=== PATIENT | female | born 2000 | race Caucasian/White ===

== ENCOUNTER 2022-09-30 14:59 | Observation (INO) | payer OTHER, SELFPAY ==
[2022-09-30] VITALS (7 sets, daily range): BP systolic 108–118; BP diastolic 59–83; PULSE 71–121; RESP 14–30; TEMP 35.5–36.7; O2SAT 90–99; BMI 30.7; BMI 29.5
--- NOTE | 2022-09-30 15:18 | CT_ITS ---
STUDY: CT ABDOMEN AND PELVIS WITHOUT CONTRAST REASON FOR EXAM: Female, 21 years old. llq abdominal pain RADIATION DOSAGE (If Supplied By Facility): CTDIvol = ( 8.94 ) mGy, DLP = ( 469.14 ) mGycm TECHNIQUE: Transaxial images were obtained from the dome of the diaphragm to the symphysis pubis without oral contrast, and without intravenous contrast. Sagittal and coronal images were reconstructed. Individualized dose optimization techniques were used for this CT. COMPARISON: None. FINDINGS: The visualized lung bases are unremarkable. The visualized portions of the heart are within normal limits. Massively enlarged left kidney, measuring as much as 23 cm top to bottom. Most of this is from numerous fluid density structures consistent with severe long-term hydronephrosis. However, multicystic dysplastic kidney is not excluded although these are most often discovered at a far earlier age. Further evaluation is necessary with contrast CT or contrast MRI. No stones. Normal appearance of right kidney. There is decreased attenuation of the liver consistent with steatosis. There is hepatomegaly. Normal gallbladder and extrahepatic biliary system. Normal spleen. Normal pancreas. Normal bilateral adrenal glands. Evaluation of the GI tract is limited by absence of oral contrast. Cannot exclude stomach wall thickening. No dilated loops of bowel or evidence for obstruction. Cannot exclude segmental thickening of the narvaez of the small or large bowel. Cannot exclude enteritis or colitis. Moderate diffuse fecal retention. Appendix within normal limits. Normal abdominal aorta. Normal inferior vena cava. Normal retroperitoneum. Normal urinary bladder. Normal visualized uterus. Normal abdominal wall. Normal osseous structures. CT/Abdomen/Pelvis without Cont IMPRESSION: Massively enlarged left kidney, measuring as much as 23 cm top to bottom. Most of this is from numerous fluid density structures consistent with severe long-term hydronephrosis. However, multicystic dysplastic kidney is not excluded. Further evaluation is necessary with contrast CT or contrast MRI. Electronically Signed: Sim Montoya MD at 19:14 EDT ,
--- NOTE | 2022-09-30 15:20 | ED.VIS.GI ---
HPI HPI - GI History of Present Illness Chief Complaint: Abd Pain Narrative Narrative: 21-year-old female presenting with allergic reaction. Previously she was diagnosed with UTI/kidney infection in [place] where she is from. She states that she went back on the fifth and was put on Bactrim after her lab work was normal. She did not have any imaging. Over the course of the last 5 days she developed a rash which is hive-like and itchy. She states that it spread all over her whole body. She is concerned she is having an allergic reaction to the Bactrim so she stopped taking this 2 days ago. She is also been on [place] which she has not had before so she does not know she is allergic to this. She does not have any shortness of breath but she is having abdominal pain and noticed that she has a abdominal mass in the left lower quadrant. Has not had any fevers that she knows of. He has not had diarrhea but is having constipation and she has been taking stool softeners without significant relief. Patient states he is not having any more urinary symptoms however. [facility] Medical History Anxiety Home Medications escitalopram oxalate 10 mg tablet (Lexapro) 10 mg PO DAILY 09/30/22 [History Last Taken Unknown] Allergy/AdvReac Type Severity Reaction Status Date / Time TREE NUTS Allergy Severe Anaphylaxis Uncoded 09/30/22 15:01 CITRIC ACID AdvReac Mild BLISTERS Uncoded 09/30/22 15:01 RED PEPPER AdvReac Mild BLISTERS Uncoded 09/30/22 15:01 Social History Smoking Status: Current every day smoker tobacco type: e-cigarettes ROS ROS ED Constitutional Constitutional ED: Denies chills or fever(s) ENT ENT ED: Denies rhinorrhea or sore throat Cardiovascular Cardiovascular: Denies chest pain or palpitations Respiratory/Chest Respiratory/Chest: Denies cough or dyspnea Gastrointestinal Gastrointestinal: Reports abdominal pain and nausea Genitourinary Genitourinary ED: Denies hematuria or urinary frequency Musculoskeletal Musculoskeletal: Reports back pain Integumentary Reports rash; Denies abscess or Abrasions Neurologic Neurologic: Denies headache(s) EXAM Physical Exam Const Vital Signs: 09/30/22 15:02 09/30/22 17:10 09/30/22 18:00 Temperature 96 F L Temperature Source Temporal Pulse Rate 121 H 100 98 Respiratory Rate 16 24 H 29 H Blood Pressure 118/83 H Blood Pressure Mean 94 Pulse Ox 90 Oxygen Delivery Method Room Air 09/30/22 19:00 Temperature Temperature Source Pulse Rate 91 Respiratory Rate 30 H Blood Pressure Blood Pressure Mean Pulse Ox Oxygen Delivery Method Positive well nourished General Appearance ED: NAD; Negative for pallor HEENT Reports moist mucous membranes normocephalic Eyes General Eye ED: Negative for pale conjunctiva Resp normal respiratory effort and clear to auscultation bilaterally Auscultation: Negative for rales, rhonchi or wheezes Cardio regular rhythm Rate: tachycardic GI GI Narrative: Abdominal distention with palpable mass in the left upper and lower quadrant Inspection: other Palpation: tender LLQ and LUQ Neuro CN's II-XII intact bilaterally Sensorium / Orientation: alert Psych mental status grossly normal Skin no wounds General Skin Exam: Negative for jaundice or pallor MDM MDM MDM Narrative Medical decision making narrative: Patient presenting with allergic reaction to what she presumed was Bactrim and she was treated as such with epinephrine, Solu-Medrol, Pepcid, Benadryl and IV fluids. She does not have any respiratory distress and her lungs are clear. No rashes fairly diffuse but did improve some after treatment. Patient states that she is also having abdominal pain and she has palpable mass in the left side of her abdomen. Differential includes pyelonephritis, bowel obstruction, UTI, diverticulitis, colitis, allergic reaction, hernia. She states the pain here is acute and she never had this before. She is given morphine and Zofran initially. This did not touch her pain and she was given Dilaudid. CBC was obtained to assess white blood cell count, hemoglobin, platelets. CMP to assess liver function, renal function, electrolytes. Creatinine is slightly elevated at 1.22 with no comparison. Potassium is 3.1. Lactic acid is reassuring at 0.9. Lipase is negative. Urinalysis concerning for infection especially given the flank pain and abdominal pain. She was given Rocephin and urine culture was sent. CT abdomen pelvis was attempted with IV contrast however she had 2 small gauge of IV to get IV contrast that she was refusing any more sticks because these were attempted multiple times. I got a CT of the abdomen pelvis without contrast which showed a large mass from the left kidney which is 23 cm from top to bottom. I talked to Dr. Melvin regarding this and she seemed to believe that this was something, however I did drug and alcohol counselor her she had acute pain and she has a concerning urinalysis. She stated that she would admit her and possibly put a stent in her. I have counseled the patient on all findings and the plan and she was amenable to this. She is admitted in stable condition. Impression: 1. Anaphylaxis 2. Left renal mass 3. Pyelonephritis 4. Hydronephrosis Lab Data Attestation: I reviewed the patient's lab results. Labs: Laboratory Results - last 24 hr 09/30/22 09/30/22 09/30/22 15:33 15:58 19:53 WBC 18.9 H RBC 3.82 L Hgb 12.2 Hct 34.7 L MCV 90.8 MCH 31.9 MCHC 35.2 RDW Std Deviation 41.5 RDW Coeff of Watson 12.5 Plt Count 293 MPV 9.6 Immature Gran % (Auto) 2.900 H Neut % (Auto) 70.5 H Lymph % (Auto) 9.3 L [place] % (Auto) 8.9 Eos % (Auto) 7.5 H Baso % (Auto) 0.9 Absolute Neuts (auto) 13.4 H Absolute Lymphs (auto) 1.76 Nucleated RBC % 0 Differential Comment SEE COMMENT Diff Path Review May foll Platelet Estimate ADEQUATE RBC Morphology N CHROM Anisocytosis RARE Macrocytosis RARE Sodium 139 Potassium 3.1 L Chloride 107 Carbon Dioxide 18.0 L Anion Gap 14 BUN 14 Creatinine 1.22 H Estim Creat Clear Calc 55.51 Est GFR (MDRD) Af Amer 72 Est GFR (MDRD) Non-Af 59 L BUN/Creatinine Ratio 11.5 Glucose 86 Lactic Acid 0.9 Calcium 9.1 Total Bilirubin 0.90 AST 19 ALT 27 Alkaline Phosphatase 172 H Total Protein 6.9 Albumin 2.4 L Globulin 4.5 H Albumin/Globulin Ratio 0.5 L Lipase 31 Serum , Qual Cancelled Urine Color Pooja Urine Clarity Cloudy Urine pH 6.0 Ur Specific [place] 1.015 Urine Protein 100 H Urine Glucose (UA) Normal Urine Ketones Negative Urine Occult Blood 250 H Urine Nitrite Negative Urine Bilirubin 1 H Urine Urobilinogen 4 H Ur Leukocyte Esterase 500 H Urine RBC 5-10 SEEN Urine WBC 50-100 SEEN Ur Squamous Epith Cells 0-5 SEEN Urine Bacteria 0 SEEN Urine Mucus 0 SEEN Urine Test Negative Radiography Diagnostic Testing: Clinical Impression(s) from Imaging Studies Abdomen/Pelvis CT 09/30/22 15:18 IMPRESSION: Massively enlarged left kidney, measuring as much as 23 cm top to bottom. Most of this is from numerous fluid density structures consistent with severe long-term hydronephrosis. However, multicystic dysplastic kidney is not excluded. Further evaluation is necessary with contrast CT or contrast MRI. Electronically Signed: Sim Montoya MD at 19:14 EDT , Discharge Plan Disposition Disposition: Acute Care Hospital [facility] Discharge Date/Time: 09/30/22 21:01
[2022-09-30] MEDS: Epi Pen (EQUIV) 0.3 MG Syringe IM (15:38)
[2022-09-30] MEDS: Ondansetron 4 MG/2 ML Vial IV (15:40)
[2022-09-30] MEDS: DiphenhydrAMINE 50 MG/ML Syringe IV (15:40)
[2022-09-30] MEDS: Morphine 4 MG/ML Syringe IV (15:40)
[2022-09-30] MEDS: 0.9% Normal Saline 1,000 ML 999 ML IV (15:43)
[2022-09-30 15:49] LABS: Bacteria 0 SEEN /hpf (None Seen); Mucous, Urine 0 SEEN /hpf (<or=2+)
[2022-09-30 16:06] LABS: Color, Urine Amber (Yellow); Glucose, Dipstick Normal (Normal); Ketone-Dipstick Negative (Negative); Leukocyte Esterase-Dipstick 500 /ul (Negative); Nitrite-Dipstick Negative (Negative); Occult Blood-Urine 250 /ul (Negative); Protein-Dipstick 100 mg/dl (Negative); Specific Gravity, Urine 1.015 (1.002-1.030); Urine Clarity Cloudy (Clear); Urine Urobilinogen 4 mg/dl (Normal)
[2022-09-30 16:08] LABS: Absolute Lymphocyte Count 1.76 X10^3/uL (0.83-4.51); Absolute Neutrophil Count 13.4 X10^3/uL (2.0-7.7); Basophil# 0.17 X10^3/uL; Basophil% 0.9 % (0-1); Eosinophil# 1.42 X10^3/uL; Eosinophils% 7.5 % (0-5); Hematocrit 34.7 % (37-47); Hemoglobin 12.2 g/dL (12.0-15.0); Lymphocyte # 1.76 X10^3/ul (0.83-4.51); Lymphocyte % 9.3 % (19-41); Mean Corp Hgb Conc 35.2 g/dL (32-36); Mean Corpuscular Hgb 31.9 pg (27.0-32.0); Mean Corpuscular Volume 90.8 fL (81-99); Mean Platelet Vol. 9.6 fl (6.2-12.0); Monocyte# 1.68 X10^3/uL; Monocyte% 8.9 % (0-10); NRBC Flagged by Analyzer 0 % (0-5); Neutrophil # 13.36 X10^3/uL (2.7-7.7); Neutrophil % 70.5 % (47-70); POSITIVE DIFFERENTIAL YES; POSITIVE MORPHOLOGY YES; Platelet Count 293 K/mm3 (150-450); RBC Distribution Width CV 12.5 % (11.6-14.6); RBC Distribution Width SD 41.5 fl (35.1-43.9); Red Blood Count 3.82 M/mm3 (4.2-5.4); White Blood Count 18.9 K/mm3 (4.4-11.0)
[2022-09-30] MEDS: MethylPREDNISolone 125 MG/2 ML Vial IV (16:10)
[2022-09-30] MEDS: Famotidine 200 MG/20 ML MDV 20 MG in 0.9% Normal Saline (Pres. free 8 ML 300 MG IV (16:11)
[2022-09-30 16:18] LABS: Differential Indicated SCAN CRITERIA MET
[2022-09-30] MEDS: HYDROmorphone 0.5 MG/0.5 ML SYRINGE IV ×2 (16:22→19:43)
[2022-09-30 16:23] LABS: Urine Bilirubin Dipstick 1 mg/dL (Negative)
[2022-09-30 16:24] LABS: Red Blood Cells-Urine 5-10 SEEN /hpf (0-5); Squamous Epithelial Cells - UA 0-5 SEEN /hpf (5-10); White Blood Cells 50-100 SEEN /hpf (0-5)
[2022-09-30 16:43] LABS: Anisocytosis RARE; Macrocytosis RARE; Platelet Estimate ADEQUATE (ADEQ); Red Cell Morphology N CHROM NORMAL (NORM C&C)
[2022-09-30 17:29] LABS: ALB/GLOB Ratio 0.5 RATIO (0.9-2.4); AST(SGOT) 19 U/L (15-37); Alanine Aminotransfer ALT/SGPT 27 U/L (13-56); Albumin, Serum 2.4 g/dL (3.2-5.0); Alkaline Phosphatase 172 U/L (45-117); Anion Gap 14 (5-15); BUN 14 mg/dL (7-18); BUN/Creat Ratio 11.5 RATIO (10-20); Calcium,Total 9.1 mg/dL (8.5-10.1); Chloride 107 mmol/L (98-107); Creatinine, Serum 1.22 mg/dL (0.55-1.02); EST Glomerular Filtration Rate 59 mL/min (>60); Est Glom Filt Rate - Afr Amer 72 mL/min (>60); Estimated Creatinine Clearance 55.51 ml/min; Globulin 4.5 g/dL (2.2-4.2); Glucose 86 mg/dL (74-106); Lipase 31 U/L (13-75); Potassium 3.1 mmol/L (3.5-5.1); Protein, Total 6.9 g/dL (6.4-8.2); Sodium Level 139 mmol/L (136-145)
[2022-09-30 17:52] LABS: Internal QC Validated? YES +Cl - CLEAR BKGD; Pregnancy, Urine Negative Negative
[2022-09-30] MEDS: DiphenhydrAMINE 50 MG/ML Syringe 25 MG IV (19:43)
[2022-09-30] MEDS: Ceftriaxone 1 GM/50 ML BAG IV (19:44)
[2022-09-30 20:48] LABS: Lactic Acid 0.9 mmol/L (0.4-1.9)
[2022-09-30] MEDS: 0.9% Saline Lock 10 ML Syringe IV (22:30)
[2022-09-30] MEDS: Lactated Ringers 1,000 ML 100 ML IV (22:30)
[2022-09-30] MEDS: Morphine 2 MG/ML Syringe IV (22:40)
[2022-10-01 05:17] VITALS: BP 112/66; PULSE 76; RESP 16; TEMP 36.4; O2SAT 100
--- NOTE | 2022-10-01 05:50 | NURSING ---
bladder scan performed following pt voiding. post void scanned amt. 377ml.
--- NOTE | 2022-10-01 05:55 | EKG12_ITS ---
Test Reason : PRE OP Blood Pressure : / mmHG Vent. Rate : 067 BPM Atrial Rate : 067 BPM P-R Int : 128 ms QRS Dur : 084 ms QT Int : 424 ms P-R-T Axes : 050 067 050 degrees QTc Int : 448 ms Normal sinus rhythm with sinus arrhythmia Normal ECG No previous ECGs available Confirmed by DERIK PAT, NAVEED ([id number]), mapping editor ABIEL DELVALLE ([id number]) on 10/02/2022 10:48:11 AM Referred By: ELMER Confirmed By:NAVEED MORE MD
[2022-10-01 06:25] LABS: Absolute Lymphocyte Count 0.72 X10^3/uL (0.83-4.51); Basophil# 0.09 X10^3/uL; Basophil% 0.5 % (0-1); Eosinophil# 0.05 X10^3/uL; Eosinophils% 0.3 % (0-5); Hematocrit 34.9 % (37-47); Lymphocyte # 0.72 X10^3/ul (0.83-4.51); Lymphocyte % 4.4 % (19-41); Mean Corp Hgb Conc 34.4 g/dL (32-36); Mean Corpuscular Hgb 32.3 pg (27.0-32.0); Mean Corpuscular Volume 94.1 fL (81-99); Mean Platelet Vol. 9.7 fl (6.2-12.0); Monocyte# 0.27 X10^3/uL; Monocyte% 1.6 % (0-10); NRBC Flagged by Analyzer 0 % (0-5); Neutrophil # 15.02 X10^3/uL (2.7-7.7); Neutrophil % 91.2 % (47-70); POSITIVE MORPHOLOGY YES; Platelet Count 281 K/mm3 (150-450); RBC Distribution Width CV 13.1 % (11.6-14.6); RBC Distribution Width SD 44.7 fl (35.1-43.9); Red Blood Count 3.71 M/mm3 (4.2-5.4); White Blood Count 16.5 K/mm3 (4.4-11.0)
[2022-10-01 06:34] LABS: Differential Indicated SCAN CRITERIA MET
[2022-10-01 06:50] LABS: Anion Gap 8 (5-15); BUN 13 mg/dL (7-18); Calcium,Total 8.2 mg/dL (8.5-10.1); Chloride 110 mmol/L (98-107); Creatinine, Serum 0.69 mg/dL (0.55-1.02); EST Glomerular Filtration Rate 115 mL/min (>60); Est Glom Filt Rate - Afr Amer 139 mL/min (>60); Estimated Creatinine Clearance 98.14 ml/min; Glucose 116 mg/dL (74-106); Potassium 3.9 mmol/L (3.5-5.1); Sodium Level 139 mmol/L (136-145)
[2022-10-01 08:18] VITALS: BP 125/79; PULSE 112; RESP 18; TEMP 36.7; O2SAT 96
[2022-10-01] MEDS: Potassium Chloride Oral Tablet 20 MEQ PO ×2 (08:28→18:28)
[2022-10-01] MEDS: Lactated Ringers 1,000 ML 100 ML IV (08:29)
[2022-10-01] MEDS: Acetaminophen 325 MG Tablet 650 MG PO (08:50)
[2022-10-01 09:58] VITALS: O2SAT 96
[2022-10-01] MEDS: DiphenhydrAMINE 25 MG Capsule PO (10:10)
--- NOTE | 2022-10-01 11:27 | CASEMGMT ---
Social Work SW met with pt and introduced self and role of SW. Pt listed as self pay. Pt states she is from [place] and [place]. Pt is visiting [place] with her significant other and plans to return home to [place] as soon as she is released from hospital. Local self pay resources not provided due to situation. YEN Gordon
--- NOTE | 2022-10-01 12:04 | HP.PCM_ITS ---
HPI - General General Date of Admission: 09/30/22 Date of Service: 10/01/22 Chief Complaint: left abdominal pain with urinary tract infection HPI Narrative BRIELLE FRAZIER, is a 21 F who presented to the ER with severe left abdominal pain, palpable mass, urinary tract infection and allergic reaction to Bactrim. She was first given antibiotics the first week of September, and it didn't improve and she was given Bactrim. She started having hives all over, severe abdominal pain and went to the ER. She is from out of town, will be going home after she is well enough. Overnight she was given fluids and antibiotics. She reports that the bladder pain has resolved, but the abdominal pain has not. She has had urinary tract infections, but was unaware of the issues with the left kidney. She is nervous, by herself, and tearful this morning. She reports that she is thankful the bladder pain is better, but the kidney pain has been non-stop for about 3 weeks now and it is terrible. She was given pain medication when they last changed her antibiotics to Bactrim. [facility] Medical History (Updated 10/01/22 @ 12:[address] Brina Melvin MD) Abdominal pain Acute eczema Anxiety Hydronephrosis, left Pyelonephritis Urinary retention Home Medications escitalopram oxalate 10 mg tablet (Lexapro) 10 mg PO DAILY 09/30/22 [History Last Taken Unknown] hydroxyzine HCl 25 mg tablet 25 mg PO Q6H PRN anxiety 09/30/22 [History Last Taken 08/31/22 19:30 25 mg] Allergy/AdvReac Type Severity Reaction Status Date / Time TREE NUTS Allergy Severe Anaphylaxis Uncoded 09/30/22 15:01 CITRIC ACID AdvReac Mild BLISTERS Uncoded 09/30/22 15:01 RED PEPPER AdvReac Mild BLISTERS Uncoded 09/30/22 15:01 Social History Smoking Status: Current every day smoker tobacco type: e-cigarettes ROS Constitutional Constitutional: Reports body ache(s) and malaise; Denies fever(s) Eyes Eyes: Reports systems reviewed and no addt'l complaints, except as documented ENT HEENT: Reports systems reviewed and no addt'l complaints, except as documented Cardiovascular Cardiovascular: Denies chest pain, dyspnea, nausea or vomiting Respiratory/Chest Respiratory/Chest: Denies chest tightness, cough or shortness of breath at rest Gastrointestinal Gastrointestinal: Reports abdominal pain, cramping and nausea Genitourinary Genitourinary: Reports abdominal discomfort and flank pain; Denies dysuria, hematuria, low back pain, polyuria, urinary hesitancy, urinary incontinence or urinary urgency Musculoskeletal Musculoskeletal: Reports systems reviewed and no addt'l complaints, except as documented Integumentary Integumentary: Reports systems reviewed and no addt'l complaints, except as documented Neurologic Neurologic: Reports systems reviewed and no addt'l complaints, except as documented Psychiatric Psychiatric: Reports systems reviewed and no addt'l complaints, except as documented Endocrine Endocrinology: Reports systems reviewed and no addt'l complaints, except as documented Hematologic/Lymphatic Hematologic/Lymphatic: Reports systems reviewed and no addt'l complaints, except as documented Allergic/Immunologic Allergic/Immunologic: Reports systems reviewed and no addt'l complaints, except as documented Vital Signs Vital Signs Vital Signs: 09/30/22 15:02 09/30/22 17:10 09/30/22 20:45 Temperature 96 F L 98 F Temperature Source Temporal Temporal Pulse Rate 121 H 100 71 Pulse Strength Respiratory Rate 16 24 H 14 Respiratory Effort Respiratory Depth Respiratory Pattern Blood Pressure 118/83 H 109/71 Blood Pressure Mean 94 83 Blood Pressure Source Blood Pressure Position Blood Pressure Location Pulse Ox 90 99 Oxygen Delivery Method Room Air Room Air 09/30/22 18:00 09/30/22 19:00 09/30/22 20:40 Temperature Temperature Source Pulse Rate 98 91 84 Pulse Strength Respiratory Rate 29 H 30 H Respiratory Effort Respiratory Depth Respiratory Pattern Blood Pressure 109/71 Blood Pressure Mean 83 Blood Pressure Source Blood Pressure Position Blood Pressure Location Pulse Ox 99 Oxygen Delivery Method 09/30/22 21:16 09/30/22 22:00 09/30/22 22:00 Temperature 98.1 F Temperature Source Oral Pulse Rate 79 Pulse Strength Normal (2+) Respiratory Rate 18 Respiratory Effort Normal Non-Labored Respiratory Depth Normal Respiratory Pattern Normal Blood Pressure 108/59 L Blood Pressure Mean 75 Blood Pressure Source Monitor Blood Pressure Position Semi-Fowlers Blood Pressure Location Right Arm Pulse Ox 98 Oxygen Delivery Method Room Air Room Air 10/01/22 05:17 10/01/22 08:18 10/01/22 09:58 Temperature 97.6 F L 98.0 F Temperature Source Temporal Oral Pulse Rate 76 112 H Pulse Strength Respiratory Rate 16 18 Respiratory Effort Respiratory Depth Respiratory Pattern Blood Pressure 112/66 125/79 H Blood Pressure Mean 81 94 Blood Pressure Source Monitor Blood Pressure Position Semi-Fowlers Blood Pressure Location Right Arm Pulse Ox 100 96 96 Oxygen Delivery Method Room Air Room Air Room Air 10/01/22 10:00 Temperature Temperature Source Pulse Rate Pulse Strength Normal (2+) Respiratory Rate Respiratory Effort Respiratory Depth Respiratory Pattern Blood Pressure Blood Pressure Mean Blood Pressure Source Blood Pressure Position Blood Pressure Location Pulse Ox Oxygen Delivery Method Weight Weight: 70.8 kg Body Mass Index (BMI) 29.5 Physical Exam Const alert, oriented x3 and healthy appearing Constitutional Narrative: anxious and tearful General Appearance: cooperative HEENT normocephalic, head/scalp atraumatic, external ears normal, external nose normal and moist oral mucous membranes Eyes General Eye: normal appearance of both eyes Neck General: normal visual inspection and trachea midline Chest inspection of chest normal Resp normal respiratory effort, normal air movement, no retractions and no use of accessory muscles Cardio regular rate GI soft to palpation and non-tender GI Narrative: left side, kidney palpable and tender Narrative: left flank and abdominal tenderness no holguin, PVR elevated at 377cc Back/Spine General Back: CVA tenderness left Extremity normal to inspection Skin no rashes or lesions noted, no wounds, skin turgor normal, no jaundice, no petechiae and no mottling Neuro oriented x3, CN's II-XII intact bilaterally and moves all extremities Psych mental status grossly normal, thought process normal and cooperative Results Lab / Micro Data 10/01/22 05:50 10/01/22 05:50 Labs: Laboratory Results - last 24 hr 09/30/22 15:33: Urine Color Pooja, Urine Clarity Cloudy, Urine pH 6.0, Ur Specific [place] 1.015, Urine Protein 100 H, Urine Glucose (UA) Normal, Urine Ketones Negative, Urine Occult Blood 250 H, Urine Nitrite Negative, Urine Bilirubin 1 H, Urine Urobilinogen 4 H, Ur Leukocyte Esterase 500 H, Urine RBC 5- 10 SEEN, Urine WBC 50-100 SEEN, Ur Squamous Epith Cells 0-5 SEEN, Urine Bacteria 0 SEEN, Urine Mucus 0 SEEN, Urine Test Negative 09/30/22 15:58: WBC 18.9 H, RBC 3.82 L, Hgb 12.2, Hct 34.7 L, MCV 90.8, MCH 31.9, MCHC 35.2, RDW Std Deviation 41.5, RDW Coeff of Watson 12.5, Plt Count 293, MPV 9.6, Immature Gran % (Auto) 2.900 H, Neut % (Auto) 70.5 H, Lymph % (Auto) 9.3 L, [place] % (Auto) 8.9, Eos % (Auto) 7.5 H, Baso % (Auto) 0.9, Absolute Neuts (auto) 13.4 H, Absolute Lymphs (auto) 1.76, Nucleated RBC % 0, Differential Comment SEE COMMENT, Diff Path Review July foll, Platelet Estimate ADEQUATE, RBC Morphology N CHROM, Anisocytosis RARE, Macrocytosis RARE, Sodium 139, Potassium 3.1 L, Chloride 107, Carbon Dioxide 18.0 L, Anion Gap 14, BUN 14, Creatinine 1.22 H, Estim Creat Clear Calc 55.51, Est GFR (MDRD) Af Amer 72, Est GFR (MDRD) Non-Af 59 L, BUN/Creatinine Ratio 11.5, Glucose 86, Calcium 9.1, Total Bilirubin 0.90, AST 19, ALT 27, Alkaline Phosphatase 172 H, Total Protein 6.9, Albumin 2.4 L, Globulin 4.5 H, Albumin/Globulin Ratio 0.5 L, Lipase 31, Serum , Qual Cancelled 09/30/22 19:53: Lactic Acid 0.9 10/01/22 05:50: WBC 16.5 H, RBC 3.71 L, Hgb 12.0, Hct 34.9 L, MCV 94.1, MCH 32.3 H, MCHC 34.4, RDW Std Deviation 44.7 H, RDW Coeff of Watson 13.1, Plt Count 281, MPV 9.7, Immature Gran % (Auto) 2.000 H, Neut % (Auto) 91.2 H, Lymph % (Auto) 4.4 L, [place] % (Auto) 1.6, Eos % (Auto) 0.3, Baso % (Auto) 0.5, Absolute Neuts (auto) 15.0 H, Absolute Lymphs (auto) 0.72 L, Nucleated RBC % 0, Sodium 139, Potassium 3.9, Chloride 110 H, Carbon Dioxide 21.0, Anion Gap 8, BUN 13, Creatinine 0.69, Estim Creat Clear Calc 98.14, Est GFR (MDRD) Af Amer 139, Est GFR (MDRD) Non-Af 115, BUN/Creatinine Ratio 19.0, Glucose 116 H, Calcium 8.2 L Radiology Impression Abdomen/Pelvis CT 09/30/22 15:18 IMPRESSION: Massively enlarged left kidney, measuring as much as 23 cm top to bottom. Most of this is from numerous fluid density structures consistent with severe long-term hydronephrosis. However, multicystic dysplastic kidney is not excluded. Further evaluation is necessary with contrast CT or contrast MRI. Electronically Signed: Sim Montoya MD at 19:14 EDT , Assessment & Plan Assessment/Plan (1) Pyelonephritis: (2) Hydronephrosis, left: (3) Abdominal pain: QUALIFIERS: Abdominal location: left upper quadrant Qualified Code(s): R10.12 - Left upper quadrant pain (4) Leukocytosis: QUALIFIERS: Leukocytosis type: unspecified Qualified Code(s): D72.829 - Elevated white blood cell count, unspecified (5) Urinary retention: PLAN: Plan continue antibiotics and supportive care holguin catheter for retention of urine repeat labwork this afternoon if not improving will consider cystoscopy with left ureteral stent insertion discussed with patient that she will ultimately need more evaluation and pos sible surgical intervention for the left kidney after she returns home, that our goal here is to make her well enough for discharge.
[2022-10-01 14:20] VITALS: BP 112/75; PULSE 77; RESP 18; TEMP 36.6; O2SAT 99
[2022-10-01 16:58] LABS: Absolute Lymphocyte Count 1.13 X10^3/uL (0.83-4.51); Basophil# 0.18 X10^3/uL; Basophil% 0.8 % (0-1); Eosinophil# 0.51 X10^3/uL; Eosinophils% 2.2 % (0-5); Hematocrit 35.3 % (37-47); Hemoglobin 12.7 g/dL (12.0-15.0); Lymphocyte # 1.13 X10^3/ul (0.83-4.51); Lymphocyte % 4.8 % (19-41); Mean Corpuscular Hgb 32.2 pg (27.0-32.0); Mean Corpuscular Volume 89.4 fL (81-99); Mean Platelet Vol. 10.4 fl (6.2-12.0); Monocyte# 1.26 X10^3/uL; Monocyte% 5.3 % (0-10); NRBC Flagged by Analyzer 0 % (0-5); Neutrophil # 20.02 X10^3/uL (2.7-7.7); Neutrophil % 84.7 % (47-70); POSITIVE COUNT YES; POSITIVE DIFFERENTIAL YES; Platelet Count 238 K/mm3 (150-450); RBC Distribution Width CV 12.3 % (11.6-14.6); RBC Distribution Width SD 40.6 fl (35.1-43.9); Red Blood Count 3.95 M/mm3 (4.2-5.4); White Blood Count 23.6 K/mm3 (4.4-11.0)
[2022-10-01 17:01] LABS: Differential Indicated SCAN CRITERIA MET
[2022-10-01 17:36] LABS: Differential Comment SCANNED
--- NOTE | 2022-10-01 17:46 | PN.URO_ITS ---
Subjective Subjective Over the course of the day, the patient has only complained about the urinary catheter. Her bladder is no longer having the same pain she was having previously and her kidney pain is better as well. Her hives are no longer itching. She already has another appointment with a urologist in her hometown lined up on October 07. She understands that after discharge if she is feeling worse, having any reaction, heart racing, dizziness, fever, nausea, vomiting etc. that she will return to an emergency room. Objective Data Objective Data Vital Signs: Vital Signs Temp Pulse Resp BP Pulse Ox O2 Del Method 97.9 F 77 18 112/75 99 Room Air 10/01/22 14:20 10/01/22 14:20 10/01/22 14:20 10/01/22 14:20 10/01/22 14:20 10/01/22 14:20 Oxygen Delivery Method Room Air Weight: 70.8 kg Body Mass Index (BMI) 29.5 Intake & Output: Intake and Output for Last 24 Hours 09/29/22 09/30/22 10/01/22 23:59 23:59 23:59 Intake Total 1060 / 1060 2198.33 / 2198.33 Output Total 250 / 250 Balance 1060 / 1060 1948.33 / 1948.33 Lab / Micro Data 10/01/22 16:39 10/01/22 05:50 Labs: Laboratory Results - last 24 hr 09/30/22 15:33: Urine Test Negative 09/30/22 19:53: Lactic Acid 0.9 10/01/22 05:50: WBC 16.5 H, RBC 3.71 L, Hgb 12.0, Hct 34.9 L, MCV 94.1, MCH 32.3 H, MCHC 34.4, RDW Std Deviation 44.7 H, RDW Coeff of Watson 13.1, Plt Count 281, MPV 9.7, Immature Gran % (Auto) 2.000 H, Neut % (Auto) 91.2 H, Lymph % (Auto) 4.4 L, [place] % (Auto) 1.6, Eos % (Auto) 0.3, Baso % (Auto) 0.5, Absolute Neuts (auto) 15.0 H, Absolute Lymphs (auto) 0.72 L, Nucleated RBC % 0, Sodium 139, Potassium 3.9, Chloride 110 H, Carbon Dioxide 21.0, Anion Gap 8, BUN 13, Cr eatinine 0.69, Estim Creat Clear Calc 98.14, Est GFR (MDRD) Af Amer 139, Est GFR (MDRD) Non-Af 115, BUN/Creatinine Ratio 19.0, Glucose 116 H, Calcium 8.2 L 10/01/22 16:39: WBC 23.6 H, RBC 3.95 L, Hgb 12.7, Hct 35.3 L, MCV 89.4, MCH 32.2 H, MCHC 36.0, RDW Std Deviation 40.6, RDW Coeff of Watson 12.3, Plt Count 238, MPV 10.4, Immature Gran % (Auto) 2.200 H, Neut % (Auto) 84.7 H, Lymph % (Auto) 4.8 L , [place] % (Auto) 5.3, Eos % (Auto) 2.2, Baso % (Auto) 0.8, Absolute Neuts (auto) 20.0 H, Absolute Lymphs (auto) 1.13, Nucleated RBC % 0, Differential Comment SCANNED Radiography Diagnostic Testing: Radiology Impression Abdomen/Pelvis CT 09/30/22 15:18 IMPRESSION: Massively enlarged left kidney, measuring as much as 23 cm top to bottom. Most of this is from numerous fluid density structures consistent with severe long-term hydronephrosis. However, multicystic dysplastic kidney is not excluded. Further evaluation is necessary with contrast CT or contrast MRI. Electronically Signed: Sim Montoya MD at 19:14 EDT , Physical Exam Const alert, oriented x3 and no apparent distress General Appearance: cooperative, comfortable and anxious HEENT normocephalic, hearing grossly normal bilaterally, external ears normal, external nose normal and moist oral mucous membranes Lymph Lymphatic: no lymphedema noted Chest inspection of chest normal Resp normal respiratory effort, normal air movement and no retractions Cardio regular rate GI soft to palpation and non-tender Narrative: Mccann balloon deflated and catheter removed without difficulty. Urine in tubing clear yellow. Extremity normal to inspection Skin Skin Narrative: She does have diffuse hives throughout. This was not documented earlier today, but it does appear stable from this morning's exam. Neuro oriented x3, CN's II-XII intact bilaterally and moves all extremities Psych mental status grossly normal Assessment & Plan Assessment/Plan (1) Urinary retention: (2) Abdominal pain: QUALIFIERS: Abdominal location: left upper quadrant Qualified Code(s): R10.12 - Left upper quadrant pain (3) Hydronephrosis, left: PLAN: Plan Continue antibiotics We will give a dose of Keflex with evening meal and if no reaction she can be discharged home after dinner She knows to follow-up in the emergency room with any fever, chills, nausea, vomiting or any evidence of a reaction to her medications She will follow-up with her home urologist
[2022-10-01] MEDS: Cephalexin 500 MG Capsule PO (18:28)
[2022-10-02 10:14] LABS: Pathologist Review Reviewed
== END 2022-10-01 19:54 | disposition home or self-care (01) ==
LOC: ED 16:25 → MS3 23:23
PROVIDERS: Admitting Provider Urology; Emergency Provider Student in an Organized Health Care Education/Training Program; Visit Provider Urology
DX: R33.9 Retention of urine, unspecified (principal); N12 Tubulo-interstitial nephritis, not specified as acute or chronic; F17.290 Nicotine dependence, other tobacco product, uncomplicated; N13.30 Unspecified hydronephrosis; R19.04 Left lower quadrant abdominal swelling, mass and lump; F41.9 Anxiety disorder, unspecified; Z79.899 Other long term (current) drug therapy; L27.0 Generalized skin eruption due to drugs and medicaments taken internally; T36.8X5A Adverse effect of other systemic antibiotics, initial encounter; T40.2X5A Adverse effect of other opioids, initial encounter; T39.1X5A Adverse effect of 4-Aminophenol derivatives, initial encounter; K59.00 Constipation, unspecified
CPT/HCPCS: 36415; 51702; 74176; 80048; 80053; 81001; 81025; 83605; 83690; 85025; 87086; 87088; 93005; 96361; 96365; 96367; 96375; 96376; 99221; 99285; 99406; J7030; J7120; A4216; G0378; J2405; J3490